=== PATIENT | male | born 1995 | race Caucasian/White ===

== ENCOUNTER 2017-04-15 08:34 | Emergency (ER) | payer OTHER ==
[~2017-04-15] VITALS: Ht 185.4 cm; Wt 84.1 kg
[2017-04-15 08:37] VITALS: BP 118/67; PULSE 108; RESP 22; O2SAT 99
--- NOTE | 2017-04-15 08:54 | ED.REPORT ---
HPI-GI Bleed Date of Service Apr 15, 2017 ED Provider: Dustin Gil MD Pt is a healthy 21 year old male who presents to the ED with concerns for hematemisis since 1900 last night. He reports that prior to his vomiting, he was feeling normal, but m=having mild loss of appetitie. He reports that at first, he was vomiting liquid, and then food, and then he began to notice blood in his vomitng. He reports that diarrhea started last night around 2300. Pt reports 20+ episodes of diarrhea and vomiting. He states that he drank out of a garden hose yesterday. Pt reports no fevers, but admit to full body aches. He has no other complaints. Nursing Notes Stated Complaint: VOMITING BLOOD Chief Complaint: Male Abdominal Pain Nursing Notes Reviewed: Yes (Open-Plug not reconciled) Allergies: Coded Allergies: No Known Allergies (Unverified Allergy, Unknown, 04/15/17) Scheduled PRN Hydrocodone-Acetaminophen 5-325 mg (Hydrocodone-Acetaminophen 5-325 mg) 1 Each Tablet 1 TABLET PO Q4H PRN PRN For Pain Loperamide (Loperamide) 2 Mg Tablet 2 MG PO Q4H PRN PRN For Diarrhea or Loose Stool Take 1 tab after each episode of diarrhea-up to 6 tabs in 24 hours Ondansetron ODT (Ondansetron ODT) 8 Mg Tab.rapdis 8 MG PO Q4H PRN PRN For Nausea General Time Seen by Provider: 08:59 Chief Complaint Chief Complaint: Abdominal pain, Vomiting blood Hx Obtained From: Patient Arrived By: Walk-in Onset Occurred: Yesterday Quality: Painful Severity: Current: Mild Severity: Maximum: Moderate Similar Sx Previous: Yes Past Medical History Past Medical History Healthy Past Surgical History Denies Smoking History Never Smoker Review of Systems Constitutional: Denies: Chills, Fever, Malaise, Weakness - generalized Respiratory: Denies: Non-productive cough, Shortness of breath, Wheezing Cardiovascular: Denies: Chest pain, Syncope GI: Reports: Abdominal pain, Diarrhea, Nausea, Vomiting Skin: Denies Bruising Neurologic: Denies: Change LOC, Dizziness, Headache Complete sys rev & neg: except as marked. Physical Exam Initial Vital Signs Vital Signs (First) Date Time Temp Pulse Resp B/P Pulse Ox O2 Delivery O2 Flow Rate FiO2 04/15/17 08:37 36.6 108 22 118/67 99 Room Air Initial VS: Reviewed, Vital signs abnormal (tachy) Head / Eyes: Atraumatic, Normocephalic, PERRL ENT: Mucous membranes moist, Conjunctiva normal, No scleral icterus Neck: Supple, Non-tender, Full range of motion Skin: Warm, Dry, No cyanosis Neurologic: Alert, Oriented, Nonfocal General/Constitutional: Awake, Alert Respiratory / Chest: Breath sounds NL, Breath sounds = bilat, No respiratory distress, No rales, No rhonchi, No wheezing Cardiovascular: Heart rate NL, Regular rhythm, Heart sounds NL, No murmurs, Cap refill not delayed, Peripheral circulation NL Abdomen: Soft, Non-tender, No guarding, No rebound, BS normoactive, No distention, No palpable mass, No pulsatile mass Interpretation & Diagnostics Lab Results Interpretation Result Diagram: 04/15/17 0850 04/15/17 0850 Test 04/15/17 08:50 04/15/17 11:15 White Blood Count 12.6th/mm3 (3.8-10.1) Red Blood Count 5.70mil/mm3 (4.40-5.80) Hemoglobin 17.4g/dL (13.8-17.2) Hematocrit 49.2% (41.0-50.0) Mean Corpuscular Volume 86.3fL (81-100) Mean Corpuscular Hemoglobin 30.5pg (27.0-35.0) Mean Corpuscular Hemoglobin Concent 35.4% (32.0-37.0) Red Cell Distribution Width 12.3% (12.3-15.4) Platelet Count 310bil/L (150-400) Neutrophils (%) (Auto) 94.3% (40-74) Lymphocytes (%) (Auto) 2.1% (14-46) Monocytes (%) (Auto) 3.1% (4-12) Eosinophils (%) (Auto) 0.1% (0-5) Basophils (%) (Auto) 0.1% (0-3) Sodium Level 135mEq/L (134-144) Potassium Level 3.7mEq/L (3.5-5.2) Chloride Level 97mEq/L (97-108) Carbon Dioxide Level 21mmol/L (18-29) Blood Urea Nitrogen 14mg/dL (6-20) Creatinine 0.57mg/dL (0.76-1.27) Estimat Glomerular Filtration Rate 188mL/min (>59) Glucose Level 120mg/dL (60-99) Calcium Level 9.4mg/dL (8.5-10.1) Magnesium Level 1.8mg/dL (1.6-2.6) Total Bilirubin 1.0mg/dL (0.0-1.2) Aspartate Amino Transf (AST/SGOT) 32U/L (0-50) Alanine Aminotransferase (ALT/SGPT) 42U/L (0-44) Alkaline Phosphatase 104U/L (25-150) Total Protein 8.4g/dL (6.4-8.4) Albumin 4.9g/dL (3.4-5.0) Lipase 15U/L (13-60) Hold Ch Top Tube Received (Received) Hold Urine Received (Received) Lab Results Interpretation: Urine tox screening: Positive for Marijuana, Methamohetamine, Tricyclic antidepressants and amphetamines. CBC positive leukocytosis, positive hemoconcentration CMP normal Re-Eval/Medical Decision Med Decision/Clinical Course This is a 21-year-old male developed with onset of nausea vomiting diarrhea last night. Reports uncountable episodes of nausea vomiting, and after numerous episodes developed vomiting with some blood, and became increasing concerned he was able to keep anything down and repeated retching. Is also having diarrhea, nonbloody. He's had no fevers or chills, no travel history, no antibiotic exposure history, no known diarrheal illness, reports and exposure of drinking out of water from a hose which seems overall low risk and there are no known ill contacts. He has normal vitals, appears fatigued and dehydrated but has a soft, nontender abdomen with no focal signs of a surgical abdomen. Labs revealed mild leukocytosis, nonspecific and are otherwise normal. Patient received antiemetics and fluids and much improved and received a single dose of hydrocodone. His mother in case there has been a history of substance abuse and she's been concerned, and a urine tox was obtained and positive were several stimulants, and he agreed to talk to a [employer] about resources. The patient is observed for a number of hours, did much better after hydration, is able to eat and drink. At this point is suspect a viral etiology with repeated retching leading to a Mary-Gómez tear as the cause of his GI bleeding - the patient had no hematemesis, no diarrhea or multi hour stay in the department is clearly much improved-there are no features to indicate need for GI referral or emergent /urgent follow-up endoscopy at this stage. The patient is appropriate discharged with conservative therapy. The patient is much improved and discharged in good condition. Source of Hx: Old records Re-Evaluation/Progress : Time of Eval: 12:32 Re-Evaluation/Progress Note: Pt is rechecked, he reports that his symptoms have improved. He is informed of the plan to discharge him at this time. He understands and agrees, all questions are addressed. Counseled Regarding: Diagnosis, Lab results, When/why to return to ED Discharge & Departure Impression: Primary Impression: Mary-Gómez tear Additional Impressions: Vomiting and diarrhea Substance abuse Disposition: Home Discharge Condition All VS Reviewed: Yes Condition: Stable Additional Instructions: 1. The bleeding you describe is typical of a benign condition called a "Mary- Gómez" tear which is from small tears to the esophagus from repeated retching. Although scary, this type of bleeding heals rapidly on its own. Your blood counts were normal. 2. This type of vomiting and diarrhea is typically caused by a viral infection, and should improve with time and supportive car.e 3. Take the nausea medication ondansetron 8mg (let dissolve under the tongue) up to every 4 hours as needed for nausea. 4. Take the jazj-[id number] medication loperamide 2 mg 1 tab every episode of diarrhea up to 6 tabs in 24 hours 5. Drink small, frequent sips of fluids-slowly advance diet as tolerated. 6. Follow up with the resources as provided by the public health social worker 7. Return again if new or worsening symptoms. Referrals: Anabel Mata MD (Family) Deisyibiman Attestation Portions of this note were transcribed by Ro Schilling. I, Dr. Sierra, Dr. Gil personally performed the history, physical exam and medical decision- making; I reviewed and confirmed the accuracy of the information in the transcribed note. Signed by: Janeth Youssef, 04/15/2017 12:30 copies to: Anabel Mata MD, Matthew F MD Apr 15, 2017 08:54 TATIANNA SCHILLING Apr 15, 2017 09:01
[2017-04-15] MEDS ORDERED: Famotidine Inj 20 MG in IV Premix 1 EACH IV ONE (08:55)
[2017-04-15] MEDS ORDERED: 0.9% Sodium Chloride 1,000 ML IV ONE ×2 (08:55→10:15)
[2017-04-15] MEDS ORDERED: Promethazine Inj 25 MG in Dextrose 5%-Pha MIX 50 ML IV ONE (08:55)
[2017-04-15 09:21] LABS: BASOPHILS % (AUTO) 0.1 % (0-3); EOSINOPHILS % (AUTO) 0.1 % (0-5); MONOCYTES % (AUTO) 3.1 % (4-12); Mean Corpuscular Hemoglobin 30.5 pg (27.0-35.0); Mean Corpuscular Volume 86.3 fL (81-100); NEUTROPHILS % (AUTO) 94.3 % (40-74); Platelet Count 310 bil/L (150-400)
[2017-04-15 10:06] LABS: Magnesium 1.8 mg/dL (1.6-2.6)
[2017-04-15 10:58] VITALS: BP 102/65; PULSE 58; RESP 16; O2SAT 96
[2017-04-15] MEDS ORDERED: ONDA8TAB10 PO (12:27)
[2017-04-15] MEDS ORDERED: LOPE2TAB32 PO (12:27)
[2017-04-15] MEDS ORDERED: HYDROcodone-APAP 5-325 mg Tablet PO ONE (13:05)
[2017-04-15] MEDS ORDERED: HYDR-4003 PO (15:15)
[2017-04-15 15:43] VITALS: BP 99/47; PULSE 87; RESP 10; O2SAT 97
== END 2017-04-15 15:30 | disposition home or self-care (01) ==
LOC: SED 08:34
DX: K22.6 Gastro-esophageal laceration-hemorrhage syndrome (principal); R11.2 Nausea with vomiting, unspecified; R19.7 Diarrhea, unspecified; F19.10 Other psychoactive substance abuse, uncomplicated
CPT/HCPCS: 36415; 80053; 83690; 83735; 85025; 86850; 96361; 96374; 96375; 99285; J1200; J2550; J3490; J7030